=== PATIENT | female | born 1945 | race Hispanic/Latino ===

== ENCOUNTER → 2018-06-12 | Outpatient (CLI) | payer OTHER | END | disposition home or self-care (01) | LOC: SHCH 10:00 | PROVIDERS: ATTEND Internal Medicine Cardiovascular Disease | DX: I08.0 Rheumatic disorders of both mitral and aortic valves (principal); I11.9 Hypertensive heart disease without heart failure | CPT/HCPCS: 93306 ==

== ENCOUNTER → 2018-11-23 | Outpatient (CLI) | payer OTHER ==
[~2018-11-23] VITALS: Ht 154.9 cm; Wt 66.2 kg
[~2018-11-23] MED LIST: REGADENOSON 0.4 MG/5 ML PF SYG IVP SCH
== END | disposition home or self-care (01) ==
LOC: SHCH 08:17
PROVIDERS: ATTEND Internal Medicine Cardiovascular Disease
DX: I35.0 Nonrheumatic aortic (valve) stenosis (principal)
CPT/HCPCS: 78452; 93017; 96374; A9500 ×2; J2785

== ENCOUNTER → 2019-12-06 | Outpatient (CLI) | payer OTHER | END | disposition home or self-care (01) | LOC: SHCH 13:34 | PROVIDERS: ATTEND Internal Medicine Cardiovascular Disease | DX: I10 Essential (primary) hypertension (principal); I35.0 Nonrheumatic aortic (valve) stenosis | CPT/HCPCS: 93306; 93356 ==

== ENCOUNTER → 2020-04-22 | Outpatient (CLI) | payer OTHER | END | disposition home or self-care (01) | LOC: OIH 14:53 | PROVIDERS: ATTEND Internal Medicine | DX: M19.042 Primary osteoarthritis, left hand (principal); M19.041 Primary osteoarthritis, right hand; M19.072 Primary osteoarthritis, left ankle and foot; M19.071 Primary osteoarthritis, right ankle and foot; M77.32 Calcaneal spur, left foot; M77.31 Calcaneal spur, right foot; M85.842 Other specified disorders of bone density and structure, left hand; M85.841 Other specified disorders of bone density and structure, right hand | CPT/HCPCS: 73630 ==

== ENCOUNTER 2021-10-28 16:14 | Emergency (ER) | payer OTHER ==
[~2021-10-28] VITALS: Ht 149.9 cm; Wt 60.3 kg
[2021-10-28 16:16] VITALS: BP 115/38
[2021-10-28] MEDS ORDERED: ACETAMINOPHEN 500 MG TABLET PO ONE (18:30)
== END 2021-10-28 18:20 | disposition home or self-care (01) ==
LOC: EDH 16:14
DX: S62.616A Displaced fracture of proximal phalanx of right little finger, initial encounter for closed fracture (principal); S00.83XA Contusion of other part of head, initial encounter; E11.9 Type 2 diabetes mellitus without complications; E78.00 Pure hypercholesterolemia, unspecified; I10 Essential (primary) hypertension; M19.90 Unspecified osteoarthritis, unspecified site; W01.0XXA Fall on same level from slipping, tripping and stumbling without subsequent striking against object, initial encounter; Y92.480 Sidewalk as the place of occurrence of the external cause
CPT/HCPCS: 29125; 70450; 70486; 73130

== ENCOUNTER → 2022-04-23 | Outpatient (CLI) | payer OTHER ==
[2022-04-23 12:44] LABS: BASOPHILS % (AUTO) 1.6 % (0.0-5.0); EOSINOPHILS % (AUTO) 7.2 % (0.0-8.0); HEMATOCRIT 36.1 % (36-48); LYMPHOCYTES % (AUTO) 32.1 % (21.0-51.0); MEAN CORPUSCULAR HEMOGLOBIN 28.9 pg (27.0-33.0); MEAN CORPUSCULAR HGB CONC 32.7 g/dL (32.0-36.0); MEAN CORPUSCULAR VOLUME 88.5 fL (79-99); MONOCYTES % (AUTO) 12.6 % (3.0-13.0); NEUTROPHILS % (AUTO) 46.2 % (40.0-77.0); PLATELET COUNT (AUTO) 273 K/uL (130-400); RED BLOOD CELL COUNT(AUTO) 4.08 MIL/uL (4.00-5.50); RED CELL DISTRIBUTION WIDTH 13.3 % (11.0-15.5); WHITE BLOOD COUNT (AUTO) 7.6 K/uL (4.8-10.8)
[2022-04-23 13:12] LABS: ALBUMIN 3.7 g/dL (3.5-5.0); CREATININE 1.2 mg/dL (0.5-1.5); POTASSIUM 3.9 mmol/L (3.5-5.1); TOTAL PROTEIN, SERUM 7.6 g/dL (6.0-8.3)
== END | disposition home or self-care (01) ==
LOC: LAB 09:10
PROVIDERS: ATTEND Internal Medicine Cardiovascular Disease
DX: I10 Essential (primary) hypertension (principal); E78.5 Hyperlipidemia, unspecified
CPT/HCPCS: 36415; 80053; 80061; 85025

== ENCOUNTER → 2022-05-21 | Outpatient (CLI) | payer OTHER | END | disposition home or self-care (01) | LOC: SHCH 14:31 | PROVIDERS: ATTEND Internal Medicine Cardiovascular Disease | DX: I08.0 Rheumatic disorders of both mitral and aortic valves (principal) | CPT/HCPCS: 93306 ==

== ENCOUNTER → 2022-05-25 | Outpatient (CLI) | payer OTHER ==
[~2022-05-25] MED LIST changes: +REGADENOSON 0.4 MG/5 ML PF SYG IVP ONE; -REGADENOSON 0.4 MG/5 ML PF SYG IVP SCH
== END | disposition home or self-care (01) ==
LOC: SHCH 08:24
PROVIDERS: ATTEND Internal Medicine Cardiovascular Disease
DX: R07.9 Chest pain, unspecified (principal); R94.39 Abnormal result of other cardiovascular function study
CPT/HCPCS: 78452; 93017; J2785; A9500 ×2; 96374

== ENCOUNTER → 2022-10-27 | Outpatient (CLI) | payer OTHER | END | disposition home or self-care (01) | LOC: SHCH 14:43 | PROVIDERS: ATTEND Internal Medicine Cardiovascular Disease | DX: I73.9 Peripheral vascular disease, unspecified (principal) | CPT/HCPCS: 93925 ==

== ENCOUNTER 2024-02-17 10:28 | Observation (INO) | payer OTHER ==
[~2024-02-17] VITALS: Ht 154.9 cm; Wt 55.7 kg
--- NOTE | 2024-02-17 10:45 | ERN ---
ED Note History of Present Illness Stated Complaint: EPIGASTRIC PAIN, NAUSEA Chief Complaint: Abdominal Pain Time Seen by MD: 10:43 Dictation: Patient is a 78-year-old female coming in today with burning pain to her epigastric area onset yesterday afternoon. She denies fever chills nausea vomiting. States there is no shortness a breath back pain jaw pain or arm pain. She states she is a diabetic however did not check her blood sugar this morning. Allergies: Coded Allergies: No Known Drug Allergies (Unverified Allergy, 05/09/12) Past Medical History Past Medical History: Arthritis, Diabetes-Type II, High Cholesterol, Heart Disease, Hypertension Surgical History: Hysterectomy, None Social History: Other History: Not Applicable RN Note Reviewed/Agreed w/PFSH: Yes Review of System Dictation CONSTITUTIONAL: Negative except for HPI HEAD/FACE: Negative except for HPI EENT: Negative except for HPI RESPIRATORY: Negative except for HPI GASTROINTESTINAL/ABDOMINAL: Negative except for HPI epigastric pain GENITOURINARY: Negative except for HPI MUSCULOSKELETAL: Negative except for HPI INTEGUMENTARY: Negative except for HPI NEUROLOGICAL/PSYCH: Negative except for HPI HEMATOLOGIC/LYMPHATIC: Negative except for HPI All Systems Negative, Except as noted above. 13 point review of systems assessed and all negative except for above. Initial Vital Sign VS Vital Signs Date Time Temp Pulse Resp B/P (MAP) Pulse Ox O2 Delivery O2 Flow Rate FiO2 02/17/24 10:30 97.9 62 16 134/59 98 Room Air 0 02/17/24 12:00 21 Physical Exam Dictation Vital Signs reviewed General Appearance: Alert, oriented x 3, moderate acute distress, well d eveloped, nourished. Head and Face: non-traumatic. Eyes: PERRL, pink conjunctivas, eyelid no trauma, anterior chamber with arcus senilis. Ears: Pinnas intact and no signs of trauma or erythema ear canals clear and no discharge TM no erythema Nose: No discharge, no bleeding. Oropharynx: Mouth normal, tongue pink, pharynx clear,no erythema, tonsils no exudates, no abscesses noted, mucous membrane moist Neck: Supple, non-tender, no thyromegaly, no masses, no JVD, no bruits Breast:Deferred Chest:No tenderness, no crepitus, no paradoxical movement, no retractions Lungs:Clear, well-ventilated, symmetric, no rales, no wheezing, no rhonchi, no stridor, good breath sounds bilaterally Heart: Regular rate, regular rhythm, no murmur, no gallops Vascular: no peripheral edema, Abdomen: Soft, positive bowel sounds, nondistended, no guarding, moderate epigastric pain with palpation no rebound, no masses no hepatomegaly, no splenomegaly, no Gandara's sign, no hernias. Rectal: Deferred Genital: Deferred Neurological: Normal speech, motor function intact, sensory function intact Musculoskeletal: Neck nontender, full range of motion, back nontender, full range of motion, Extremities: nontender, full range of motion Skin: Color pink, dry, no turgor, no rash, no lacerations, no abrasions, no contusions. Lymphatic: Deferred Results (Laboratory/Radiology) Laboratory/Radiology Laboratory Tests Test 02/17/24 10:54 02/17/24 11:04 02/17/24 14:19 02/17/24 18:30 White Blood Count 15.2 K/uL (4.8-10.8) H Red Blood Count 4.46 MIL/uL (4.00-5.50) Hemoglobin 12.9 g/dL (12.0-16.0) Hematocrit 37.1 % (36-48) Mean Corpuscular Volume 83.2 fL (79-99) Mean Corpuscular Hemoglobin 28.9 pg (27.0-33.0) Mean Corpuscular Hemoglobin Concent 34.8 g/dL (32.0-36.0) Red Cell Distribution Width 12.5 % (11.0-15.5) Platelet Count 381 K/uL (130-400) Mean Platelet Volume 9.2 fL (7.5-10.5) Immature Granulocyte % (Auto) 0.7 % (0-1) Neutrophils (%) (Auto) 78.4 % (40.0-77.0) H Lymphocytes (%) (Auto) 14.3 % (21.0-51.0) L Monocytes (%) (Auto) 5.2 % (3.0-13.0) Eosinophils (%) (Auto) 0.7 % (0.0-8.0) Basophils (%) (Auto) 0.7 % (0.0-5.0) Neutrophils # (Auto) 12.0 K/uL (1.8-7.7) H Lymphocytes # (Auto) 2.2 K/uL (1.0-4.8) Monocytes # (Auto) 0.8 K/uL (0.1-1.0) Eosinophils # (Auto) 0.11 K/uL (0.00-0.70) Basophils # (Auto) 0.11 K/uL (0.00-0.20) Absolute Immature Granulocyte (auto 0.10 K/uL (0-1) Nucleated Red Blood Cells 0.0 % (0.0-0.19) Sodium Level 135 mmol/L (136-145) L Potassium Level 4.1 mmol/L (3.5-5.1) Chloride Level 97 mmol/L (101-111) L Carbon Dioxide Level 25 mmol/L (21-32) Blood Urea Nitrogen 18 mg/dL (7-18) Creatinine 1.6 mg/dL (0.5-1.0) H Glomerular Filtration Rate Calc 33 mL/min (>90) Random Glucose 159 mg/dL (70-105) H Total Calcium 10.0 mg/dL (8.5-10.1) Total Bilirubin 0.6 mg/dL (0.2-1.0) Direct Bilirubin 0.1 mg/dL (0.0-0.3) Aspartate Amino Transf (AST/SGOT) 19 U/L (10-37) Alanine Aminotransferase (ALT/SGPT) 14 U/L (12-78) Alkaline Phosphatase 67 U/L (50-136) Total Creatine Kinase 53 U/L (21-232) # 73 U/L (21-232) # Troponin I High Sensitivity 7 ng/L (4-50) 11.1 ng/L (4-50) Total Protein 8.4 g/dL (6.0-8.3) H Albumin 3.6 g/dL (3.5-5.0) Lipase 122 U/L (16-77) H Urine Color LIGHT-YELLOW (YELLOW) Urine Appearance CLOUDY (CLEAR) H Urine pH 6.5 (5.0-8.0) Urine Specific Van 1.013 (1.001-1.031) Urine Protein 20 mg/dL (NEGATIVE) H Urine Glucose (UA) NEGATIVE mg/dL (NEGATIVE) Urine Ketones 20 mg/dL (NEGATIVE) H Urine Occult Blood NEGATIVE (NEGATIVE) Urine Nitrate NEGATIVE (NEGATIVE) Urine Bilirubin NEGATIVE mg/dL (NEGATIVE) Urine Urobilinogen 0.2 mg/dL (0.2-1.0) Urine Leukocyte Esterase 500 Gareth/uL (NEGATIVE) H Urine RBC 2-5 /HPF (0-1) H Urine WBC 26-50 /HPF (0-1) H Urine Squamous Epithelial Cells MANY /HPF (0-2) Urine Bacteria RARE /HPF (None Seen) Urine Hyaline Casts 2-5 /LPF (0-1 /LPF) H Influenza Type A Antigen Negative For Type A Influenza Type B Antigen Positive For Type B SARS-CoV-2 Antigen (Rapid) POSITIVE FOR SARS AG Group A Streptococcus Rapid negative (NEGATIVE) Test 02/17/24 23:40 02/18/24 03:59 Total Creatine Kinase 78 U/L (21-232) 81 U/L (21-232) Troponin I High Sensitivity 9.6 ng/L (4-50) 9.2 ng/L (4-50) White Blood Count 8.0 K/uL (4.8-10.8) # Red Blood Count 3.87 MIL/uL (4.00-5.50) L Hemoglobin 11.3 g/dL (12.0-16.0) L Hematocrit 33.2 % (36-48) L Mean Corpuscular Volume 85.8 fL (79-99) Mean Corpuscular Hemoglobin 29.2 pg (27.0-33.0) Mean Corpuscular Hemoglobin Concent 34.0 g/dL (32.0-36.0) Red Cell Distribution Width 12.8 % (11.0-15.5) Platelet Count 311 K/uL (130-400) Mean Platelet Volume 9.1 fL (7.5-10.5) Immature Granulocyte % (Auto) 0.2 % (0-1) Neutrophils (%) (Auto) 50.6 % (40.0-77.0) Lymphocytes (%) (Auto) 35.2 % (21.0-51.0) Monocytes (%) (Auto) 9.5 % (3.0-13.0) Eosinophils (%) (Auto) 3.5 % (0.0-8.0) Basophils (%) (Auto) 1.0 % (0.0-5.0) Neutrophils # (Auto) 4.1 K/uL (1.8-7.7) Lymphocytes # (Auto) 2.8 K/uL (1.0-4.8) Monocytes # (Auto) 0.8 K/uL (0.1-1.0) Eosinophils # (Auto) 0.28 K/uL (0.00-0.70) Basophils # (Auto) 0.08 K/uL (0.00-0.20) Absolute Immature Granulocyte (auto 0.02 K/uL (0-1) Nucleated Red Blood Cells 0.0 % (0.0-0.19) Sodium Level 139 mmol/L (136-145) Potassium Level 4.4 mmol/L (3.5-5.1) Chloride Level 104 mmol/L (101-111) Carbon Dioxide Level 29 mmol/L (21-32) Blood Urea Nitrogen 19 mg/dL (7-18) H Creatinine 1.3 mg/dL (0.5-1.0) H Glomerular Filtration Rate Calc 42 mL/min (>90) Random Glucose 62 mg/dL (70-105) #L Total Calcium 9.0 mg/dL (8.5-10.1) Phosphorus Level 3.3 mg/dL (2.5-4.9) Magnesium Level 1.70 mg/dL (1.80-2.40) L B-Type Natriuretic Peptide 147 pg/mL (0-100) H Procalcitonin < 0.05 ng/mL (0.05-0.5) L Thyroid Stimulating Hormone (TSH) 2.41 uIU/mL (0.36-3.74) CHEST 1VW REASON: ABD PAIN COMPARISON: 12/19/2012 FINDINGS: Single view of the chest was obtained. Lungs are clear. Heart size is normal. There is no pulmonary vascular congestion. Mediastinum and bony thorax appear unremarkable. IMPRESSION: 1. Normal single view chest x-ray. CT ABDOMEN/PELVIS W/CONTRAST REASON: Epigastric and left upper quadrant pain elevated lipase COMPARISON: None. TECHNIQUE: Images are obtained from lung bases through the symphysis pubis following IV contrast, 100 cc Isovue 350. FINDINGS: Lung bases are clear. There are no focal liver lesions. There are normal-appearing kidneys.. Spleen and pancreas appear unremarkable. The gallbladder appears normal as well. Bowel loops appear unremarkable. This includes normal appearance of the appendix There is no evidence of free fluid or intraperitoneal air. There are no focal fluid collections. There is extensive vascular calcification. Aorta is calcified but not aneurysmal or stenotic. Pelvic soft tissues appear unremarkable. The anterior abdominal wall is intact. Osseous structures appear unremarkable. IMPRESSION: 1. No acute finding in the abdomen or pelvis. 2. Extensive vascular calcification in the aorta and mesenteric vessels. Labs Reviewed?: Yes EKG Comment: EKG SINUS RHYTHM/HEART RATE 79/AXIS NORMAL/NONSPECIFIC CHANGES ANTERIOR LEADS ED Course ED Course Orders Procedure Category Date Status Time 12 Lead Ekg Tracing- EKG 02/17/24 Resulted Technical 10:38 Chest 1vw RAD 02/17/24 Resulted 10:38 Urinalysis Profile LAB 02/17/24 Complete 10:38 Cbc With Differential LAB 02/17/24 Complete 10:38 Basic Metabolic Panel LAB 02/17/24 Complete 10:38 Lipase LAB 02/17/24 Complete 10:38 Troponin I High LAB 02/17/24 Complete Sensitivity 10:38 Creatine Kinase, Total LAB 02/17/24 Complete 10:38 Hepatic Function Panel LAB 02/17/24 Complete 10:38 Lidocaine Hcl 2% PHA 02/17/24 Complete Viscous (Lidocaine Hcl 11:00 Mag/Alum/Simeth 30ml PHA 02/17/24 Complete (Maalox Plus 30ml) 11:00 Dicyclomine Hcl PHA 02/17/24 Complete (Bentyl 10mg/5ml 11:00 Famotidine 20mg Vial PHA 02/17/24 Complete (Pepcid 20mg Vial) 11:00 Iohexol (Omnipaque) PHA 02/17/24 Complete 10:58 Ct Abdomen/Pelvis CT 02/17/24 Resulted W/Contrast 11:33 Culture Urine KWAN 02/17/24 In Process 11:55 Ceftriaxone 1g Vial PHA 02/17/24 Complete (Rocephine 1g Inj) 12:30 Edm Admit Bridge Order ADM 02/17/24 Transmitted 13:27 Vital Signs Every 4 CPOE 02/17/24 Transmitted Hours 13:34 Activity: Ad Shobha CPOE 02/17/24 Transmitted 13:34 Cbc With Differential LAB 02/18/24 Complete 04:00 B-Type Natriuretic LAB 02/18/24 Complete Peptide 04:00 Ceftriaxone 1g Vial PHA 02/17/24 Complete (Rocephine 1g Inj) 14:00 Acetaminophen 650mg PHA 02/17/24 In Process Supp (Tylenol 650mg 14:00 Admit Orders ADM 02/17/24 Transmitted 13:34 Initiate AMNA 02/17/24 In Process Hyperglycemia Protoco 13:34 Covid19 (Sars Antigen LAB 02/17/24 Complete Rapid) 13:44 Rapid (Group A Strep) LAB 02/17/24 Complete 13:44 Influenza Type A & B, LAB 02/17/24 Complete Rapid 14:19 Droplet Precautions CPOE 02/17/24 Transmitted 15:22 Doxycycline Hyclate PHA 02/17/24 In Process (Doxycycline Hyclate 21:00 Oseltamivir Phosphate PHA 02/17/24 In Process (Tamiflu) 16:00 Ipratropium/Albuterol PHA 02/17/24 In Process Neb (Duoneb) 15:30 Pt Eval And Treat PT 02/17/24 Transmitted 15:24 Case Management CM 02/17/24 Transmitted Evaluation 15:24 Droplet Precautions CPOE 02/17/24 Transmitted 15:27 Cardiac Panel LAB 02/17/24 Complete 17:50 Cardiac Panel LAB 02/17/24 Complete 23:50 Cardiac Panel LAB 02/18/24 Complete 05:50 Blood Cult KWAN 02/17/24 In Process 18:12 Pantoprazole 40mg Inj PHA 02/17/24 In Process (Protonix 40mg Inj 21:00 Apply Scds CPOE 02/17/24 Transmitted 18:14 Procalcitonin LAB 02/18/24 Complete 04:00 Chest 1vw RAD 02/18/24 Resulted 06:00 Initiate Po AMNA 02/17/24 In Process Hypokalemia Protoc 18:15 Potassium Chloride PHA 02/17/24 In Process 20meq/100ml ([place] 18:30 Potassium Chl 10% PHA 02/17/24 In Process Elixir 20meq (Kcl 10% 18:30 Potassium Chloride PHA 02/17/24 In Process 20meq Er (K-Dur/Klor- 18:30 Notify Physician If CPOE 02/17/24 Transmitted There Is 18:15 Notify Md On The Next CPOE 02/17/24 Transmitted 18:15 Notify Md On The CPOE 02/17/24 Transmitted Next(Cont.) 18:15 Magnesium 2gm Premix PHA 02/17/24 In Process 50ml (Magnesium 2gm 18:30 Nurse To Enter Home CPOE 02/17/24 Transmitted Medication 18:17 Gi Soft/Holmes Diet DIET 02/18/24 Transmitted Breakfast Mag/Alum/Simeth 30ml PHA 02/17/24 In Process (Maalox Plus 30ml) 18:30 Basic Metabolic Panel LAB 02/18/24 Complete 05:50 Magnesium LAB 02/18/24 Complete 05:50 Phosphorus LAB 02/18/24 Complete 05:50 Thyroid Stimulating LAB 02/18/24 Complete Hormone 05:50 Ceftriaxone 2gm Vial PHA 02/18/24 In Process (Rocephin 2gm Inj) 14:00 Current Medications Medications (Trade) Dose Ordered Sig/Sommer Route PRN Reason Start Time Stop Time Status Last Admin Dose Admin Al Hydroxide/Mg Hydroxide (MAALox PLUS 30ML) 30 ml ONCE ONCE PO 02/17/24 11:00 02/17/24 11:01 DC 02/17/24 12:10 Ceftriaxone Sodium (ROCEphine 1G INJ) 1 gm ONCE ONCE IVPB 02/17/24 12:30 02/17/24 12:31 DC 02/17/24 14:02 Dicyclomine HCl (Bentyl 10mg/5ml Syrup) 10 mg ONCE ONCE PO 02/17/24 11:00 02/17/24 11:01 DC 02/17/24 12:10 Famotidine (Pepcid 20mg Vial) 20 mg ONCE ONCE IV 02/17/24 11:00 02/17/24 11:01 DC 02/17/24 12:11 Iohexol (Omnipaque) 35,000 mg STK-MED ONCE IV 02/17/24 10:58 02/17/24 10:59 DC Lidocaine HCl (Lidocaine HCl 2% Viscous) 10 ml ONCE ONCE PO 02/17/24 11:00 02/17/24 11:01 DC 02/17/24 12:10 Vital Signs Date Time Temp Pulse Resp B/P (MAP) Pulse Ox O2 Delivery O2 Flow Rate FiO2 02/18/24 16:45 97.9 66 21 147/52 99 02/18/24 11:51 98.2 57 22 130/59 97 02/18/24 09:30 98 Room Air* 0 21 02/18/24 08:25 98.1 53 18 135/52 98 02/18/24 07:35 67 18 N/A Room Air 21 02/18/24 04:00 97.5 53 17 117/46 98 Room Air 02/18/24 00:00 97.7 61 16 137/48 97 Room Air 02/17/24 21:02 66 18 N/A Room Air 02/17/24 20:40 98 Room Air* 0 02/17/24 20:00 97.5 65 17 119/51 98 Room Air 02/17/24 18:42 Room Air* 0 02/17/24 15:40 69 18 N/A Room Air 02/17/24 12:00 65 20 119/48 99 Room Air* 0 02/17/24 10:30 97.9 62 16 134/59 98 Room Air 0 1310, PATIENT STATES PAIN IS BEING REDUCED BY TREATMENT FOR GASTRITIS HOWEVER SHE STATES SHE WOULD LIKE TO STAY IN THE HOSPITAL TO HAVE A URINARY TRACT INFECTION TREATED AND TO GET RID OF HER ABDOMINAL PAIN COMPLETELY. [facility] LAB[facility] CHEST X- RAY AND INTERVENTIONS FOR UTI. HEART Score Response (Comments) Value EKG: Repolarization changes 1 Age: > 65yrs (+2) 2 Risk Factors: 1-2 risk factors (+1) 1 Initial Troponin: Normal limit (0) 0 Total 4 Medical Decision Making MDM MDM: DIFFERENTIAL DIAGNOSIS: GASTRITIS VERSUS GASTROENTERITIS, ACS/AMI/PNEUMONIA/BRONCHITIS/PANCREATITIS/URINARY TRACT INFECTION/SEPSIS RATIONALE: TESTS CONSIDERED AND ORDERED SECONDARY TO SHARED DECISION MAKING INCLUDE: LABS, ECG AND RADIOLOGY PREVIOUS OUTSIDE RECORDS REVIEWED: OLD ER VISITS. REVIEWED RISK OF COMPLICATION AND/OR MORBIDITY OR MORTALITY OF PATIENT MANAGEMENT: MODERATE MEDICATIONS-PER MEDICATION RECONCILIATION SEE NURSE'S NOTES NEED FOR HOSPITALIZATION: PATIENT DOES MEET CRITERIA FOR HOSPITALIZATION. YES FOR TREATMENT FOR UTI LEUKOCYTOSIS AND ELEVATED LIPASE NEED FOR EMERGENCY MAJOR/MINOR SURGERY: NO THERE ARE NO SOCIAL CONCERNS WITH THIS PATIENT. PRESCRIPTION DRUG MANAGEMENT PRESCRIPTIONS WILL INCLUDE SYMPTOMATIC CARE PATIENT'S PRIOR EXTERNAL MEDICAL RECORDS FROM OTHER ER VISITS WERE REVIEWED BY ME INDICATED. PRIOR TESTING AND RESULTS FROM PREVIOUS VISITS WERE REVIEWED. PRIOR TESTS WERE TAKEN INTO ACCOUNT WITH MEDICAL DECISION MAKING AND RESOURCE UTILIZATION, INDEPENDENT HISTORIAN/HISTORIANS WERE USED TO OBTAIN COMPLETE MEDICAL HISTORY. I INDEPENDENTLY INTERPRETED THE TEST THAT WERE PERFORMED, RESULTS WERE REVIEWED BY ME AND CONSIDERED FINDINGS ON RADIOLOGY IF ORDERED. MEDICAL MANAGEMENT AND EXAMINATION INTERPRETATION DISCUSSIONS WERE HAD BY ME WITH OTHER QUALIFIED HEALTHCARE PROFESSIONALS INDICATED FOR THE PATIENT'S CARE. DX & DISP Disposition: Inpatient Decision to Admit Time: 12:50 Departure Impression: Primary Impression: Acute cystitis with hematuria Additional Impressions: Serum lipase elevation, Stage 3 chronic kidney disease Condition: Stable Referrals: TYSHAWN KABA MD (PCP) Time of Disposition: 12:50 I have reviewed the case, and I agree with, Diagnosis and Plan I performed a substantive portion of the visit. I have reviewed and personally made and approve the management plan that is documented in the notes by myself with RAMON/resident. I acknowledged full responsibility for the patient's management plan. JAMIE CAMPUZANO NP Feb 17, 2024 10:45 ASHLEY ARCOS DO Feb 18, 2024 17:18
--- NOTE | 2024-02-17 10:57 | HMCIMG ---
CHEST 1VW REASON: ABD PAIN COMPARISON: 12/19/2012 FINDINGS: Single view of the chest was obtained. Lungs are clear. Heart size is normal. There is no pulmonary vascular congestion. Mediastinum and bony thorax appear unremarkable. IMPRESSION: 1. Normal single view chest x-ray.
[2024-02-17] MEDS ORDERED: IOHEXOL 350 MG/ML 100ML INFUS..BTL IV ONE (10:58)
[2024-02-17 11:12] LABS: BASOPHILS # (AUTO) 0.11 K/uL (0.00-0.20); BASOPHILS % (AUTO) 0.7 % (0.0-5.0); EOSINOPHILS # (AUTO) 0.11 K/uL (0.00-0.70); EOSINOPHILS % (AUTO) 0.7 % (0.0-8.0); HEMATOCRIT 37.1 % (36-48); LYMPHOCYTES # (AUTO) 2.2 K/uL (1.0-4.8); LYMPHOCYTES % (AUTO) 14.3 % (21.0-51.0); MEAN CORPUSCULAR HEMOGLOBIN 28.9 pg (27.0-33.0); MEAN CORPUSCULAR HGB CONC 34.8 g/dL (32.0-36.0); MEAN CORPUSCULAR VOLUME 83.2 fL (79-99); MONOCYTES # (AUTO) 0.8 K/uL (0.1-1.0); MONOCYTES % (AUTO) 5.2 % (3.0-13.0); NEUTROPHILS % (AUTO) 78.4 % (40.0-77.0); PLATELET COUNT (AUTO) 381 K/uL (130-400); RED BLOOD CELL COUNT(AUTO) 4.46 MIL/uL (4.00-5.50); RED CELL DISTRIBUTION WIDTH 12.5 % (11.0-15.5); WHITE BLOOD COUNT (AUTO) 15.2 K/uL (4.8-10.8)
[2024-02-17 11:25] LABS: CREATININE 1.6 mg/dL (0.5-1.0); POTASSIUM 4.1 mmol/L (3.5-5.1)
[2024-02-17 11:29] LABS: ALBUMIN 3.6 g/dL (3.5-5.0); BILIRUBIN,DIRECT 0.1 mg/dL (0.0-0.3); BILIRUBIN,TOTAL 0.6 mg/dL (0.2-1.0); TOTAL PROTEIN, SERUM 8.4 g/dL (6.0-8.3)
--- NOTE | 2024-02-17 11:46 | EKG ---
[facility] Test Date: 2024-02-17 Test Time: 10:41:39 Pat Name: SAI KABA Department: [facility] Room: Gender: F Knocker Out: [id number] : 1945 Requested By: ASHLEY ARCOS Order Number: [id number] Reading MD: Osito Monahan Measurements Intervals [place] Rate: 60 P: 49 NV: 195 QRS: 56 QRSD: 72 T: 77 QT: 436 QTc: 436 Interpretive Statements Sinus rhythm Low voltage, extremity leads Consider anteroseptal infarct No previous ECG available for comparison Electronically Signed On 02-17-2024 12:25:08 PULP MIXER by Osito Monahan Please click the below link to view image of tracing.
[2024-02-17 11:54] LABS: ADD UA MICROSCOPIC YES; APPEARANCE,URINE CLOUDY (CLEAR); BILIRUBIN,URINE NEGATIVE (NEGATIVE); COLOR,URINE LIGHT-YELLOW (YELLOW); GLUCOSE, URINE (UA) NEGATIVE (NEGATIVE); KETONES,URINE 20 mg/dL (NEGATIVE); LEUKOCYTE ESTERASE ,URINE 500 Leu/uL (NEGATIVE); NITRATE,URINE NEGATIVE (NEGATIVE); OCCULT BLOOD,URINE NEGATIVE (NEGATIVE); PH,URINE 6.5 (5.0-8.0); PROTEIN,URINE 20 mg/dL (NEGATIVE); UROBILINOGEN,URINE 0.2 mg/dL (0.2-1.0)
[2024-02-17 12:03] LABS: BACTERIA,URINE RARE /HPF (None Seen); SQUAMOUS EPITHELIAL CELL,UR MANY /HPF (0-2); WBC,URINE 26-50 /HPF (0-1)
[2024-02-17] MEDS: MAG/ALUM/SIMETH 30 ML UDCUP PO ONE (12:10)
[2024-02-17] MEDS: DICYCLOMINE HCL 10 MG/5 ML ML PO ONE (12:10)
[2024-02-17] MEDS: LIDOCAINE HCL 2% VISCOUS 15 ML UDCUP PO ONE (12:10)
[2024-02-17] MEDS: FAMOTIDINE 20MG VIAL IV ONE (12:11)
--- NOTE | 2024-02-17 12:13 | HMCIMG ---
CT ABDOMEN/PELVIS W/CONTRAST REASON: Epigastric and left upper quadrant pain elevated lipase COMPARISON: None. TECHNIQUE: Images are obtained from lung bases through the symphysis pubis following IV contrast, 100 cc Isovue 350. FINDINGS: Lung bases are clear. There are no focal liver lesions. There are normal-appearing kidneys.. Spleen and pancreas appear unremarkable. The gallbladder appears normal as well. Bowel loops appear unremarkable. This includes normal appearance of the appendix There is no evidence of free fluid or intraperitoneal air. There are no focal fluid collections. There is extensive vascular calcification. Aorta is calcified but not aneurysmal or stenotic. Pelvic soft tissues appear unremarkable. The anterior abdominal wall is intact. Osseous structures appear unremarkable. IMPRESSION: 1. No acute finding in the abdomen or pelvis. 2. Extensive vascular calcification in the aorta and mesenteric vessels. CT was performed with one or more following dose reduction techniques: automated exposure control, adjustment of the mA and kv according to patient's size, or use of a iterative reconstruction technique.
[2024-02-17] MEDS ORDERED: acetaMINOPHEN 650 MG SUPPOSITORY RC PRN (14:00)
[2024-02-17] MEDS: cefTRIAXone 1G VIAL IVP SCH (14:00)
[2024-02-17] MEDS: cefTRIAXone 1G VIAL IVPB ONE (14:02)
[2024-02-17 14:45] LABS: RAPID GROUP A STREP negative (NEGATIVE)
[2024-02-17 15:00] LABS: INFLUENZA TYPE A Negative For Type A (NEGATIVE)
--- NOTE | 2024-02-17 15:05 | NUR ---
FLU AND COVID +, ERMD MADE AWARE
[2024-02-17 15:06] LABS: COVID19 (SARS ANTIGEN RAPID) POSITIVE FOR SARS AG (NEGATIVE); INFLUENZA TYPE B Positive For Type B (NEGATIVE)
--- NOTE | 2024-02-17 15:28 | HP ---
[facility] HISTORY & PHYSICAL Date Patient Seen: Feb 17, 2024 Time of Visit: 15:28 Supervising Physician: Bryce Gray MD Primary Care Physician: Dr Jennifer Reeder MD Outpatient Specialists: [[facility] Inpatient Consults: [ ] PROBLEM LIST: Acute cystitis, POA Leukocytosis Influenza B infection POA COVID-19 infection POA Osteoarthritis Type 2 diabetes mellitus Hyperlipidemia Hypertension Diverticulosis Epigastric pain-POA CHF (reported By Pt) not on exacerbation HPI: [This is a fragile 78-year-old female with a past medical history of osteoarthritis, type 2 diabetes mellitus, hyperlipidemia, heart disease, hypertension, and CHF who presented to the emergency department for evaluation of burning pain to epigastric area onset yesterday afternoon. Patient denies any fever or chills or nausea and vomiting. On arrival to the emergency department patient has a temperature of 97.9 heart rate of 62 respiratory rate of 16 unlabored saturating 98% on room air with a blood pressure 134/59. Abdominal workup done in the emergency department which showed WBCs of 15.2 neutrophils 78.4, chemistries sodium 135 chloride 97 creatinine 1.6 random glucose of 159 mg/dL with a total protein of 8.4 lipase of 122. UA was pertinent for cloudy appearance protein of 20 ketones of 20 leukocyte esterase 500 RBCs of 2-5, WBCs of 20 60 50 and hyaline casts of 2-5. On chest x-ray normal single-view of the chest. On CT abdomen and pelvis with contrast done in the emergency department there was no acute findings of the abdomen or pelvis. Extensive vascular calcification in the aorta and mesenteric vessels. Per ED provider we will like patient admitted for acute cystitis and abdominal pain. On assessment of patient she is awake alert and oriented x3. She is in no apparent distress reports that her abdominal pain has improved. She reports pain of 0 at this time. Influenza a and B and COVID 19 swabs were sent out inpatient was positive for influenza type B, and positive for SARS COVID 19. She was negative for strep throat. Patient reports she does have recurrent UTIs but usually asymptomatic. We will admit patient to medical-surgical floor and monitor for the next 24/48 hours with empiric antibiotics with Rocephin and doxycycline. Patient was started on Tamiflu 75 mg daily x5 days. Patient does not require any oxygen and is saturating 98% on room air and a Decadron needed for COVID-19. We will provide supportive care. PAST MEDICAL HX: Hyperlipidemia Hypertension Ventricular doses Sigmoid polyps Diverticulosis PAST SURGICAL HX: Fractures to 4th proximal phalanx and nondisplaced slightly community transverse fracture through the proximal metaphysis of the 5th proximal phalanx of the right hand. Repaired SOCIAL HISTORY: No tobacco, ETOH, or illicit drug use Coded Allergies: No Known Drug Allergies (Unverified Allergy, 05/09/12) REVIEW OF SYSTEMS: 12 point ROS reviewed with patient. Pertinent positives mentioned above. Otherwise negative. PHYSICAL EXAM: GENERAL: alert, weak, awake oriented x 3 HEENT: EOMI, Sclera non icteric, moist mucosa NECK: Supple, no JVD, trachea midline LUNGS: Clear breath sounds bilaterally. No wheezes HEART: Regular rate and rhythm. Normal S1 and S2, without murmurs ABD: Abdomen soft, nontender. Bowel sounds present EXT: No clubbing cyanosis or edema NEURO: Alert and oriented to person, follows commands Vital Signs (last 8hr) Date Time Temp Pulse Resp B/P (MAP) Pulse Ox O2 Delivery O2 Flow Rate FiO2 02/17/24 12:00 65 20 119/48 99 Room Air* 0 21 02/17/24 10:30 97.9 62 16 134/59 98 Room Air 0 LABS: Hematology Labs: Test 02/17/24 10:54 Range/Units White Blood Count 15.2 H 4.8-10.8 K/uL Red Blood Count 4.46 4.00-5.50 MIL/uL Hemoglobin 12.9 12.0-16.0 g/dL Hematocrit 37.1 36-48 % Mean Corpuscular Volume 83.2 79-99 fL Mean Corpuscular Hemoglobin 28.9 27.0-33.0 pg Mean Corpuscular Hemoglobin Concent 34.8 32.0-36.0 g/dL Red Cell Distribution Width 12.5 11.0-15.5 % Platelet Count 381 130-400 K/uL Mean Platelet Volume 9.2 7.5-10.5 fL Immature Granulocyte % (Auto) 0.7 0-1 % Neutrophils (%) (Auto) 78.4 H 40.0-77.0 % Lymphocytes (%) (Auto) 14.3 L 21.0-51.0 % Monocytes (%) (Auto) 5.2 3.0-13.0 % Eosinophils (%) (Auto) 0.7 0.0-8.0 % Basophils (%) (Auto) 0.7 0.0-5.0 % Neutrophils # (Auto) 12.0 H 1.8-7.7 K/uL Lymphocytes # (Auto) 2.2 1.0-4.8 K/uL Monocytes # (Auto) 0.8 0.1-1.0 K/uL Eosinophils # (Auto) 0.11 0.00-0.70 K/uL Basophils # (Auto) 0.11 0.00-0.20 K/uL Absolute Immature Granulocyte (auto 0.10 0-1 K/uL Nucleated Red Blood Cells 0.0 0.0-0.19 % Chemistry Labs: Test 02/17/24 10:54 Range/Units Sodium Level 135 L 136-145 mmol/L Potassium Level 4.1 3.5-5.1 mmol/L Chloride Level 97 L 101-111 mmol/L Carbon Dioxide Level 25 21-32 mmol/L Blood Urea Nitrogen 18 7-18 mg/dL Creatinine 1.6 H 0.5-1.0 mg/dL Glomerular Filtration Rate Calc 33 >90 mL/min Random Glucose 159 H 70-105 mg/dL Total Calcium 10.0 8.5-10.1 mg/dL Total Bilirubin 0.6 0.2-1.0 mg/dL Direct Bilirubin 0.1 0.0-0.3 mg/dL Aspartate Amino Transf (AST/SGOT) 19 10-37 U/L Alanine Aminotransferase (ALT/SGPT) 14 12-78 U/L Alkaline Phosphatase 67 50-136 U/L Total Creatine Kinase 53 # 21-232 U/L Troponin I High Sensitivity 7 4-50 ng/L Total Protein 8.4 H 6.0-8.3 g/dL Albumin 3.6 3.5-5.0 g/dL Lipase 122 H 16-77 U/L DIAGNOSTICS / RADIOLOGY RESULTS: [IMAGING REPORT Signed PATIENT: SAI REEDER MR#: [id number] : 1945 SEX: F AGE: 78 LOCATION: [facility] ORDER 113 STATUS: REG REPORT#: [id number] SERVICE 1133 REASON: Epigastric and left upper quadrant pain elevated lipase ORDERING PHYSICIAN: JAMIE CAMPUZANO NP PROCEDURE: ABD PEL W - CT ABDOMEN/PELVIS W/CONTRAST CT ABDOMEN/PELVIS W/CONTRAST REASON: Epigastric and left upper quadrant pain elevated lipase COMPARISON: None. TECHNIQUE: Images are obtained from lung bases through the symphysis pubis following IV contrast, 100 cc Isovue 350. FINDINGS: Lung bases are clear. There are no focal liver lesions. There are normal-appearing kidneys.. Spleen and pancreas appear unremarkable. The gallbladder appears normal as well. Bowel loops appear unremarkable. This includes normal appearance of the appendix There is no evidence of free fluid or intraperitoneal air. There are no focal fluid collections. There is extensive vascular calcification. Aorta is calcified but not aneurysmal or stenotic. Pelvic soft tissues appear unremarkable. The anterior abdominal wall is intact. Osseous structures appear unremarkable. IMPRESSION: 1. No acute finding in the abdomen or pelvis. 2. Extensive vascular calcification in the aorta and mesenteric vessels. CT was performed with one or more following dose reduction techniques: automated exposure control, adjustment of the mA and kv according to patient's size, or use of a iterative reconstruction technique. DICTATED BY: ELANA SALGADO MD DATE: 02/17/24 1209 ELECTRONICALLY SIGNED BY: ELANA SALGADO MD DATE: 02/17/24 1213 IMAGING REPORT Signed PATIENT: SAI REEDER MR#: [id number] : 1945 SEX: F AGE: 78 LOCATION: [facility] ORDER 1039 STATUS: [facility] REPORT#: [id number] SERVICE 1038 REASON: ABD PAIN ORDERING PHYSICIAN: ASHLEY ARCOS DO PROCEDURE: CXR1VW - CHEST 1VW CHEST 1VW REASON: ABD PAIN COMPARISON: 12/19/2012 FINDINGS: Single view of the chest was obtained. Lungs are clear. Heart size is normal. There is no pulmonary vascular congestion. Mediastinum and bony thorax appear unremarkable. IMPRESSION: 1. Normal single view chest x-ray. DICTATED BY: ELANA SALGADO MD DATE: 02/17/24 1055 ELECTRONICALLY SIGNED BY: ELANA SALGADO MD DATE: 02/17/24 1057 PLAN Admit to medical-surgical. Epigastric pain POA-cardiac panel q.6 hours x3 History of using rescue inhaler-duo nebs p.r.n. Influenza B positive-start Tamiflu 75 mg p.o. daily Empiric antibiotics with doxycycline and Rocephin 2 g Q 24 hours [id number] measures BNP TSH, CBC and BMP procalcitonin in a.m. Plan for discharge in the next 24-48 hours to home with daughter. PT eval and recs Case management for DC planning Heart healthy diet Zofran for nausea p.r.n. and pain medication as needed for abdominal pain. Follow urine culture Blood culture Monitor for fevers and treat accordingly. Monitor electrolytes and replenish accordingly. NEURO: Minimize central acting medications as possible. Maintain fall precautions, adequate lighting during the day PULMONARY: Supplemental 02 as needed. Maintain aspiration precautions at all times CARDIOVASCULAR: Follow hemodynamics. Vital signs per facility protocol GI & NUTRITION: Continue with nutritional support. Continue stool softeners and laxatives as needed. KIDNEYS & ELECTROLYTES: Strict monitoring of intake, output and overall fluid balance. Avoid nephrotoxic medications to the extent possible. Medications to be dosed according to renal function. Monitor electrolytes and replace as needed ENDOCRINE: Maintain blood glucose between 100-180 at all times. Hypoglycemia protocol in place INFECTIOUS DISEASE: Trend temperature, WBC and procalcitonin level Follow cultures, deescalate antibiotics as soon as possible. Panculture if new onset fever ONCOLOGY/HEMATOLOGY/COAGULATION: Monitor for s/s of bleeding Monitor hemoglobin, coagulation studies as needed SKIN: Pressure ulcer prevention per facility protocol Specialty mattress ORTHO/REHAB: Continue PT/OT Prophylaxis: Continue GI and DVT prophylaxis Code Status: Full Resuscitation Disposition: TBD Other: Total patient care time exceeds 35 minutes excluding all procedures. JJ CUBA TRAINING AND DEVELOPMENT MANAGER Feb 17, 2024 15:28
[2024-02-17] MEDS ORDERED: IpraTROPium/alBUTERol SULFATE 3 ML SOLUTION IH PRN (15:30)
[2024-02-17 15:40] VITALS: PULSE 69; RESP 18; O2SAT 99
[2024-02-17] MEDS: OSELTAMIVIR PHOSPHATE 75 MG CAP PO SCH (17:10)
[2024-02-17] MEDS ORDERED: MAG/ALUM/SIMETH 30 ML UDCUP PO PRN (18:30)
[2024-02-17] MEDS ORDERED: MAGNESIUM 2GM PREMIX 50ML 50 ML IV PRN (18:30)
[2024-02-17] MEDS ORDERED: PoTASSium chloRIDE 20MEQ/100ML 100 ML IV PRN (18:30)
[2024-02-17] MEDS ORDERED: PoTASSium chl 10% ELIXIR 20MEQ 20 MEQ/15 ML UDCUP PO PRN (18:30)
[2024-02-17] MEDS ORDERED: PoTASSium chloRIDE 20MEQ ER 20 MEQ ERTAB PO PRN (18:30)
--- NOTE | 2024-02-17 18:30 | NUR ---
PT IN ROOM 301 AOX3, AMBULATES TO BATHROOM BACK TO BED, 18G TO LAC,SL, STABLE VS, NO 02 IN PLACED, NON-PRODUCTIVE COUGH, DENIES ANY PAIN OR DISCOMFORT. SKIN INTACT. MADE AWARE TO CONTACT DAUGHTER TO BRING MEDICATION IN AM, PT STATES NO ONE ASKED HER IN THE EMERGENCY ROOM FOR HER HOME MEDICATION WHILE WAITING SO SINCE NO ONE ASKED FOR THEM DAUGHTER TOOK THEM BACK HOME. BED LOW AND LOCKED, SIDE RAILS X2 UP, CALL LIGHT WITHIN REACH. MADE PT AWARE NOT TO OPEN MAIN DOOR SINCE PT IS POSITIVE FOR COVID AND FLU B, PT WAS SEEN OPENING MAIN DOOR, VERBALIZED UNDERSTANDING, WILL CONTINUE TO MONITOR.
[2024-02-17 20:00] VITALS: BP 119/51; PULSE 65; RESP 17; TEMP 97.5
[2024-02-17 20:40] VITALS: O2SAT 98
[2024-02-17 21:02] VITALS: PULSE 66; RESP 18; O2SAT 97
[2024-02-17] MEDS: DOXYCYCLINE HYCLATE 100 MG TABLET PO SCH (21:30)
[2024-02-17] MEDS: PANTOPrazole 40 MG/VIAL IVP SCH (21:30)
[2024-02-18] VITALS (10 sets, daily range): BP systolic 117–164; BP diastolic 46–68; PULSE 53–67; RESP 16–22; TEMP 97.6–99.4; O2SAT 97–98
[2024-02-18 04:21] LABS: BASOPHILS # (AUTO) 0.08 K/uL (0.00-0.20); EOSINOPHILS # (AUTO) 0.28 K/uL (0.00-0.70); EOSINOPHILS % (AUTO) 3.5 % (0.0-8.0); HEMATOCRIT 33.2 % (36-48); IMMATURE GRANULOCYTE ABSOLUTE 0.02 K/uL (0-1); LYMPHOCYTES # (AUTO) 2.8 K/uL (1.0-4.8); LYMPHOCYTES % (AUTO) 35.2 % (21.0-51.0); MEAN CORPUSCULAR HEMOGLOBIN 29.2 pg (27.0-33.0); MEAN CORPUSCULAR VOLUME 85.8 fL (79-99); MONOCYTES # (AUTO) 0.8 K/uL (0.1-1.0); MONOCYTES % (AUTO) 9.5 % (3.0-13.0); NEUTROPHILS # (AUTO) 4.1 K/uL (1.8-7.7); NEUTROPHILS % (AUTO) 50.6 % (40.0-77.0); PLATELET COUNT (AUTO) 311 K/uL (130-400); RED BLOOD CELL COUNT(AUTO) 3.87 MIL/uL (4.00-5.50); RED CELL DISTRIBUTION WIDTH 12.8 % (11.0-15.5)
[2024-02-18 04:44] LABS: CREATININE 1.3 mg/dL (0.5-1.0); MAGNESIUM 1.7 mg/dL (1.80-2.40); PHOSPHORUS 3.3 mg/dL (2.5-4.9); POTASSIUM 4.4 mmol/L (3.5-5.1); THYROID STIMULATING HORMONE 2.41 uIU/mL (0.36-3.74)
[2024-02-18 05:00] LABS: B-TYPE NATRIURETIC PEPTIDE 147 pg/mL (0-100)
--- NOTE | 2024-02-18 08:43 | HMCIMG ---
PORTABLE CHEST RADIOGRAPH INDICATION: covid 19 and influenza COMPARISON: 02/17/2024 FINDINGS: Heart size is normal. The pulmonary vascularity and gregoria appear normal. No abnormal pulmonary parenchymal opacity or consolidation identified. No significant pleural effusion noted. No pneumothorax detected. IMPRESSION: No radiographic evidence for any acute cardiopulmonary process.
--- NOTE | 2024-02-18 11:39 | NUR ---
PT eval on hold d/t pt undergoing dialysis. PT team to follow-up.
--- NOTE | 2024-02-18 13:36 | PN ---
[facility] PROGRESS NOTE Date Patient Seen: Feb 18, 2024 Time of Visit: 13:36 Supervising Physician: Dr. Ray Odom Primary Care Physician: Dr Jennifer Reeder MD Outpatient Specialists: [[facility] Inpatient Consults: [ ] PROBLEM LIST: Acute cystitis, POA Leukocytosis Influenza B infection POA COVID-19 infection POA Osteoarthritis Type 2 diabetes mellitus Hyperlipidemia Hypertension Diverticulosis Epigastric pain-POA CHF (reported By Pt) not on exacerbation INTERVAL HISTORY: Patient was evaluated at bedside today with family present, she appears to be doing well, remains on room air. Patient's white count is within normal limits, she is currently on Tamiflu, doxycycline, Rocephin. Patient was not currently on steroid therapy for COVID as she is not hypoxic at this time. Renal function is 1.3 today. Discussion was held with the patient regarding her ability to be able to be discharged today, she stated that she feels well however she has no transportation at this time. I advised patient that I can place for discharge 1st thing in the morning to which she was amenable. REVIEW OF SYSTEMS: 12 point ROS reviewed with patient. Pertinent positives mentioned above. Otherwise negative. PHYSICAL EXAM: GENERAL: alert, weak, awake oriented x 3 HEENT: EOMI, Sclera non icteric, moist mucosa NECK: Supple, no JVD, trachea midline LUNGS: Clear breath sounds bilaterally. No wheezes HEART: Regular rate and rhythm. Normal S1 and S2, without murmurs ABD: Abdomen soft, nontender. Bowel sounds present EXT: No clubbing cyanosis or edema NEURO: Alert and oriented to person, follows commands Vital Signs (last 8hr) Date Time Temp Pulse Resp B/P (MAP) Pulse Ox O2 Delivery O2 Flow Rate FiO2 02/18/24 11:51 98.2 57 22 130/59 97 02/18/24 09:30 98 Room Air* 0 21 02/18/24 08:25 98.1 53 18 135/52 98 02/18/24 07:35 67 18 N/A Room Air 21 LABS: Hematology Labs: Test 02/18/24 03:59 Range/Units White Blood Count 8.0 # 4.8-10.8 K/uL Red Blood Count 3.87 L 4.00-5.50 MIL/uL Hemoglobin 11.3 L 12.0-16.0 g/dL Hematocrit 33.2 L 36-48 % Mean Corpuscular Volume 85.8 79-99 fL Mean Corpuscular Hemoglobin 29.2 27.0-33.0 pg Mean Corpuscular Hemoglobin Concent 34.0 32.0-36.0 g/dL Red Cell Distribution Width 12.8 11.0-15.5 % Platelet Count 311 130-400 K/uL Mean Platelet Volume 9.1 7.5-10.5 fL Immature Granulocyte % (Auto) 0.2 0-1 % Neutrophils (%) (Auto) 50.6 40.0-77.0 % Lymphocytes (%) (Auto) 35.2 21.0-51.0 % Monocytes (%) (Auto) 9.5 3.0-13.0 % Eosinophils (%) (Auto) 3.5 0.0-8.0 % Basophils (%) (Auto) 1.0 0.0-5.0 % Neutrophils # (Auto) 4.1 1.8-7.7 K/uL Lymphocytes # (Auto) 2.8 1.0-4.8 K/uL Monocytes # (Auto) 0.8 0.1-1.0 K/uL Eosinophils # (Auto) 0.28 0.00-0.70 K/uL Basophils # (Auto) 0.08 0.00-0.20 K/uL Absolute Immature Granulocyte (auto 0.02 0-1 K/uL Nucleated Red Blood Cells 0.0 0.0-0.19 % Chemistry Labs: Test 02/18/24 03:59 02/17/24 10:54 Range/Units Sodium Level 139 136-145 mmol/L Potassium Level 4.4 3.5-5.1 mmol/L Chloride Level 104 101-111 mmol/L Carbon Dioxide Level 29 21-32 mmol/L Blood Urea Nitrogen 19 H 7-18 mg/dL Creatinine 1.3 H 0.5-1.0 mg/dL Glomerular Filtration Rate Calc 42 >90 mL/min Random Glucose 62 #L 70-105 mg/dL Total Calcium 9.0 8.5-10.1 mg/dL Phosphorus Level 3.3 2.5-4.9 mg/dL Magnesium Level 1.70 L 1.80-2.40 mg/dL Total Creatine Kinase 81 21-232 U/L Troponin I High Sensitivity 9.2 4-50 ng/L B-Type Natriuretic Peptide 147 H 0-100 pg/mL Procalcitonin < 0.05 L 0.05-0.5 ng/mL Thyroid Stimulating Hormone (TSH) 2.41 0.36-3.74 uIU/mL Total Bilirubin 0.6 0.2-1.0 mg/dL Direct Bilirubin 0.1 0.0-0.3 mg/dL Aspartate Amino Transf (AST/SGOT) 19 10-37 U/L Alanine Aminotransferase (ALT/SGPT) 14 12-78 U/L Alkaline Phosphatase 67 50-136 U/L Total Protein 8.4 H 6.0-8.3 g/dL Albumin 3.6 3.5-5.0 g/dL Lipase 122 H 16-77 U/L DIAGNOSTICS / RADIOLOGY RESULTS: [ ] PLAN Admit to medical-surgical. Epigastric pain POA-cardiac panel q.6 hours x3 History of using rescue inhaler-duo nebs p.r.n. Influenza B positive-start Tamiflu 75 mg p.o. daily Empiric antibiotics with doxycycline and Rocephin 2 g Q 24 hours [id number] measures BNP TSH, CBC and BMP procalcitonin in a.m. Plan for discharge in the next 24-48 hours to home with daughter. PT eval and recs Case management for DC planning Heart healthy diet Zofran for nausea p.r.n. and pain medication as needed for abdominal pain. Follow urine culture Blood culture Monitor for fevers and treat accordingly. Monitor electrolytes and replenish accordingly. NEURO: Minimize central acting medications as possible. Maintain fall precautions, adequate lighting during the day PULMONARY: Supplemental 02 as needed. Maintain aspiration precautions at all times CARDIOVASCULAR: Follow hemodynamics. Vital signs per facility protocol GI & NUTRITION: Continue with nutritional support. Continue stool softeners and laxatives as needed. KIDNEYS & ELECTROLYTES: Strict monitoring of intake, output and overall fluid balance. Avoid nephrotoxic medications to the extent possible. Medications to be dosed according to renal function. Monitor electrolytes and replace as needed ENDOCRINE: Maintain blood glucose between 100-180 at all times. Hypoglycemia protocol in place INFECTIOUS DISEASE: Trend temperature, WBC and procalcitonin level Follow cultures, deescalate antibiotics as soon as possible. Panculture if new onset fever ONCOLOGY/HEMATOLOGY/COAGULATION: Monitor for s/s of bleeding Monitor hemoglobin, coagulation studies as needed SKIN: Pressure ulcer prevention per facility protocol Specialty mattress ORTHO/REHAB: Continue PT/OT Prophylaxis: Continue GI and DVT prophylaxis Code Status: Full Resuscitation Disposition: TBD Other: Total patient care time exceeds 35 minutes excluding all procedures. GUNNER COONEY Feb 18, 2024 13:36
--- NOTE | 2024-02-18 15:26 | NUR ---
INITIAL/DCP HOME Met w pt this afternoon to discuss dcp. Pt admitted w acute cystitis, COVID, Influenza. EC dtr Carrie Cornell [phone]. PCP Dr Jeferson Reeder. Preferred pharmacy is [facility] [address] Pt lives at home w her son. She independent w ambulation and ADLs. Dtr provides transportation where needed. DME includes: nebulizer, rollator and sh chair. She does not receive any services. Discharge goal is to return home. Addendum: 02/18/24 at 1528 by SHIRA JOHNSON CM Amended: Links added.
[2024-02-18] MEDS: CEFTRIAXONE 2GM VIAL IVPB SCH (15:35)
[2024-02-19 04:07] VITALS: BP 149/73; PULSE 58; RESP 16; TEMP 98.4
[2024-02-19 04:07] LABS: HEMATOCRIT 30.5 % (36-48); MEAN CORPUSCULAR HEMOGLOBIN 28.4 pg (27.0-33.0); MEAN CORPUSCULAR HGB CONC 34.1 g/dL (32.0-36.0); MEAN CORPUSCULAR VOLUME 83.3 fL (79-99); RED BLOOD CELL COUNT(AUTO) 3.66 MIL/uL (4.00-5.50); WHITE BLOOD COUNT (AUTO) 7.3 K/uL (4.8-10.8)
[2024-02-19 04:18] LABS: CREATININE 1.3 mg/dL (0.5-1.0)
[2024-02-19 06:51] VITALS: RESP 18; O2SAT 97
[2024-02-19 08:00] VITALS: BP 113/56; PULSE 60; RESP 17; TEMP 98.4
[2024-02-19 09:55] VITALS: O2SAT 97
[2024-02-19] MEDS ORDERED: SULF1TAB42 PO (10:18)
[2024-02-19] MEDS ORDERED: OSEL75 PO (10:18)
--- NOTE | 2024-02-19 10:20 | DS ---
[facility] DISCHARGE SUMMARY Date Patient Seen: Feb 19, 2024 Time of Visit: 10:20 Supervising Physician: Dr. Ray Odom Primary Care Physician: Dr Jennifer Reeder MD Outpatient Specialists: [[facility] Inpatient Consults: [ ] HOSPITAL COURSE: HPI (per admitting provider) his is a fragile 78-year-old female with a past medical history of osteoar thritis, type 2 diabetes mellitus, hyperlipidemia, heart disease, hypertension, and CHF who presented to the emergency department for evaluation of burning pain to epigastric area onset yesterday afternoon. Patient denies any fever or chills or nausea and vomiting. On arrival to the emergency department patient has a temperature of 97.9 heart rate of 62 respiratory rate of 16 unlabored saturating 98% on room air with a blood pressure 134/59. Abdominal workup done in the emergency department which showed WBCs of 15.2 neutrophils 78.4, chemistries sodium 135 chloride 97 creatinine 1.6 random glucose of 159 mg/dL with a total protein of 8.4 lipase of 122. UA was pertinent for cloudy appearance protein of 20 ketones of 20 leukocyte esterase 500 RBCs of 2-5, WBCs of 20 60 50 and hyaline casts of 2-5. On chest x-ray normal single-view of the chest. On CT abdomen and pelvis with contrast done in the emergency department there was no acute findings of the abdomen or pelvis. Extensive vascular calcification in the aorta and mesenteric vessels. Per ED provider we will like patient admitted for acute cystitis and abdominal pain. On assessment of patient she is awake alert and oriented x3. She is in no apparent distress reports that her abdominal pain has improved. She reports pain of 0 at this time. Influenza a and B and COVID 19 swabs were sent out inpatient was positive for influenza type B, and positive for SARS COVID 19. She was negative for strep throat. Patient reports she does have recurrent UTIs but usually asymptomatic. We will admit patient to medical-surgical floor and monitor for the next 24/48 hours with empiric antibiotics with Rocephin and doxycycline. Patient was started on Tamiflu 75 mg daily x5 days. Patient does not require any oxygen and is saturating 98% on room air and a Decadron needed for COVID-19. We will provide supportive care. The patient was treated for the following problems: Patient was admitted for acute cystitis, influenza B, and COVID-19 infections. Patient was treated with Tamiflu, doxycycline, and Rocephin. She has tolerated the treatments well. At the time of discharge she is ambulating on her own, currently on room air and describes no discomfort. She is being discharged today with prescriptions to complete her current treatment plan as outpatient with directions to follow up with her primary once she has completed her medications. ACTIVE PROBLEM LIST FOR THE HOSPITALIZATION: Acute cystitis, POA Leukocytosis Influenza B infection POA COVID-19 infection POA CHRONIC PROBLEMS: continue previous management per PCP unless otherwise indicate d Osteoarthritis Type 2 diabetes mellitus Hyperlipidemia Hypertension Diverticulosis Epigastric pain-POA CHF (reported By Pt) not on exacerbation TELECOMMUNICATIONS PROJECT MANAGER FINDINGS/RECOMMENDATIONS: [ ] PROCEDURES: as mentioned above DISCHARGE MEDICATIONS: Pt hemodynamically stable and afebrile at time of discharge. PCP notified of patients admission, hospital course and discharge. PHYSICAL EXAM: GENERAL: alert, weak, awake oriented x 3 HEENT: EOMI, Sclera non icteric, moist mucosa NECK: Supple, no JVD, trachea midline LUNGS: Clear breath sounds bilaterally. No wheezes HEART: Regular rate and rhythm. Normal S1 and S2, without murmurs ABD: Abdomen soft, nontender. Bowel sounds present EXT: No clubbing cyanosis or edema NEURO: Alert and oriented to person, follows commands FOLLOW-UP: Follow-up with PCP in 2-3 days RECOMMENDATIONS: See Discharge Instructions This case was seen and discussed with my supervising physician. More than 30 minutes spent on discharge process, including evaluation of the patient, discussion with nursing staff, medication reconciliation and follow-up appointments GUNNER COONEY Feb 19, 2024 10:20
--- NOTE | 2024-02-19 11:04 | NUR ---
DISCHARGE PT PIV DC'D PT GATHERED AND TOOK ALL BELONGINGS PT VERBALIZED UNDERSTANDING OF DISCHARGE INSTRUCTIONS PT HAD NO FURTHER QUESTIONS AT TIME OF DISCHARGE
== END 2024-02-19 12:15 | disposition home or self-care (01) ==
LOC: EDH 10:28 → EDHIP 13:34 → 3AH 17:53
PROVIDERS: ADMIT Internal Medicine Critical Care Medicine; ATTEND Internal Medicine Critical Care Medicine
DX: U07.1 COVID-19 (principal); N30.01 Acute cystitis with hematuria; J10.1 Influenza due to other identified influenza virus with other respiratory manifestations; I13.0 Hypertensive heart and chronic kidney disease with heart failure and stage 1 through stage 4 chronic kidney disease, or unspecified chronic kidney disease; E11.22 Type 2 diabetes mellitus with diabetic chronic kidney disease; N18.30 Chronic kidney disease, stage 3 unspecified; I50.9 Heart failure, unspecified; R74.8 Abnormal levels of other serum enzymes; K57.30 Diverticulosis of large intestine without perforation or abscess without bleeding; M19.90 Unspecified osteoarthritis, unspecified site; E78.00 Pure hypercholesterolemia, unspecified; Z90.710 Acquired absence of both cervix and uterus; Z79.899 Other long term (current) drug therapy; Z86.0100 Personal history of colon polyps, unspecified
CPT/HCPCS: 96376 ×3; 96365; 96375; 99285; 82550 ×4; 80076; 84484 ×4; 80048 ×3; 83690; 85025 ×2; 87040 ×2; 87086; 87880; 87804 ×2; 87426; 81001; 36415 ×3; 71045 ×2; 74177; 93005; 84443; 83735; 84100; 83880; 97161; 97116; 97530 ×2; 84145; 85027; G0378 ×46; J3490; J0696 ×3; J2470 ×4; Q9967; J3475